=== PATIENT | male | born 1995 | race Caucasian/White ===

== ENCOUNTER 2021-05-16 22:53 | Emergency (ER) | payer OTHER, SELFPAY ==
[2021-05-16 22:54] VITALS: BP 127/57; PULSE 89; RESP 16; TEMP 35.5; O2SAT 99; BMI 25.0
--- NOTE | 2021-05-16 22:56 | EX.ED.UPPERE ---
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 work related Onset/Context/Timing Onset: Today Context: Sudden Onset Timing: Continuous Quality of Pain: Aching Location: right arm and elbow Current Severity: Severe Maximum Severity: Severe Worsened by: any movement Relieved by: nothing Associated Symptoms Associated Symptoms: Positive for Loss of Funtion; Negative for Parasthesia and Weakness Narrative Narrative: Patient presents after work-related injury, he states he was helping to put a dumpster together, sealing the blocks, and the cook that was holding a 600+ pound gate accidentally let it go and it came down on his arm, injuring his right upper extremity. He has pain throughout the arm almost into the shoulder, and at the elbow. He is holding it in position of comfort and unable to move it due to pain. He is right-hand dominant. Denies any other injury. PFSH PFSH Medical History no medical history no medical history Home Medications sumatriptan succinate 50 mg PO X1 PRN #20 tab 05/15/17 [Rx Last Taken Unknown] Allergy/AdvReac Type Severity Reaction Status Date / Time No Known Allergies Allergy Verified 05/16/21 22:54 Social History Smoking Status: Current every day smoker tobacco type: cigarettes ROS ROS ED Constitutional Constitutional ED: Denies chills or fever(s) Musculoskeletal Musculoskeletal: Reports extremity pain; Denies neck pain Integumentary Reports Abrasions; Denies rash or wounds Neurologic Neurologic: Denies paresthesias or weakness EXAM Physical Exam Const Positive well nourished and well developed General Appearance ED: well developed and NAD Neck full ROM and supple Back/Spine normal ROM and normal to inspection Extremity Extremity Narrative: Holding right upper extremity in position of comfort, 90 degree flexed at the elbow, no deformities. All compartments are soft and nondistended without any focal swelling, he is very tender throughout the humerus especially distally and at the olecranon/proximal forearm. No tenderness from the mid forearm distal. No tenderness at the area of the radial head and lateral epicondyle laterally. Intact radial pulse 2+/4 Neuro oriented x3, no focal motor deficits and no sensory deficits noted Sensorium / Orientation: alert Psych mental status grossly normal and thought process normal Skin Skin Narrative: Superficial scrape-like abrasion to the lateral aspect of the right upper arm, and at the medial proximal forearm just distal to the right medial epicondyle of the elbow there is a 2 cm full-thickness L-shaped clean appearing subcutaneous laceration. Rashes: no rashes MDM MDM MDM Narrative Medical decision making narrative: X-rays of the right humerus and the right elbow are negative. Patient was given a [place] for pain prior to x-rays, which helped. His laceration was cleansed and repaired. He will be given appropriate work restrictions and [employer] follow-up. No evidence of acute compartment syndrome at this time. He can range the wrist, elbow, and shoulder and although it is sore/painful to do so, he is able. Procedures Lacerations right proximal forearm: Length: 2 cm Depth: Sub Q Shape: L-shaped Prep: Sterile Conditions and Chlorhexadine (scrubbed) Laceration repair: Lidocaine (1% 1cc, after topical LET) and Local Number of Sutures/Strong: 3 Suture Information: Ethilon, Simple and 4-0 Discharge Plan Triage Chief Complaint: Upper Extremity Injury ED Provider: Patrice Blanchard Dx/Rx/DC Orders Clinical Impression: Contusion of arm, right, multiple sites, Laceration of forearm, right Instructions: ED Contusion, Upper Extremity, ED Laceration: All Closures Prescriptions: No Action sumatriptan succinate 50 MG tablet 50 mg PO X1 PRN (Reason: Headache) Qty: 20 RF: 0 Stand Alone Forms: Work Status Form Primary Care Provider: Care Physician,No Primary Referrals: Corporate,[facility] [GROUP OF PHYSICIANS] - 1 Day for another exam (suture removal approx 10 days) Care Physician,No Primary [Primary Care Provider] - Disposition Disposition: Home, Self Care
--- NOTE | 2021-05-16 22:59 | RAD_ITS ---
EXAM: XR Right Humerus, 2 or More Views CLINICAL INDICATION: 26 years old, Male; injury TECHNIQUE: Frontal and lateral views of the right humerus. This report was created using [employer] report [employer] technology. COMPARISON: None. FINDINGS: Bones/joints: Unremarkable. No acute fracture. No subluxation. Normal alignment. Preservation of the joint space. No sclerotic or destructive changes observed. Soft tissues: Unremarkable. No soft tissue swelling or gas. No radiopaque foreign body. RAD/Humerus min 2 Views IMPRESSION: Negative right humerus x-rays. Electronically Signed: Edouard Euceda MD at 23:47 EST Tel , Service support ,
--- NOTE | 2021-05-16 22:59 | RAD_ITS ---
EXAM: XR Right Elbow Complete, 3 or More Views CLINICAL INDICATION: 26 years old, Male; injury TECHNIQUE: Frontal, lateral and oblique views of the right elbow. This report was created using [employer] report [employer] technology. COMPARISON: None. FINDINGS: Bones/joints: Unremarkable. There is no displacement of the anterior or posterior fat pads. No acute fracture. No subluxation. Normal alignment. Preservation of the joint space. No destructive or sclerotic lesions. Soft tissues: Unremarkable. No soft tissue swelling or gas. No radiopaque foreign body. RAD/Elbow min 3 Views IMPRESSION: Negative right elbow. Electronically Signed: Edouard Euceda MD at 23:46 EST Tel , Service support ,
[2021-05-16] MEDS: HYDROcodone Bitartrate/Apap 5/325 Tablet PO (23:06)
[2021-05-17 00:46] LABS: Bedside Glucose 116 mg/dL (70-110)
[2021-05-17 00:47] VITALS: BP 103/69; PULSE 83; RESP 16; O2SAT 99
[2021-05-17 01:21] VITALS: RESP 16
== END 2021-05-17 01:32 | disposition home or self-care (01) ==
PROVIDERS: Emergency Provider Emergency Medicine
DX: S40.021A Contusion of right upper arm, initial encounter (principal); S51.811A Laceration without foreign body of right forearm, initial encounter; F17.210 Nicotine dependence, cigarettes, uncomplicated; X58.XXXA Exposure to other specified factors, initial encounter
CPT/HCPCS: 12001; 73060; 73080; 82962; 99283